=== PATIENT | female | born 1955 | race African-American/Black ===

== ENCOUNTER 2021-11-19 09:50 | Emergency (ER) | payer MEDICARE, MEDICAID ==
[~2021-11-19] VITALS: Ht 167.6 cm; Wt 80.0 kg
[2021-11-19] MEDS ORDERED: CYCLOBENZAPRINE 10MG TABLET PO ONE (10:30)
[2021-11-19] MEDS ORDERED: KETOROLAC 60MG/2ML VIAL IM ONE (10:30)
[2021-11-19] MEDS ORDERED: LIDOCAINE 5% PATCH TOP SCH (10:30)
[2021-11-19] MEDS ORDERED: HYDROCODONE/ACETAMINOPHEN 10/325MG TABLET PO ONE (13:15)
[2021-11-19] MEDS ORDERED: DIAZEPAM 5 MG TABLET PO STA (13:52)
[2021-11-19] MEDS ORDERED: HYDR-4009 MT ×3 (14:41→15:58)
[2021-11-19 15:30] VITALS: BP 154/76
== END 2021-11-19 15:40 | disposition home or self-care (01) ==
LOC: ER 09:50
DX: M54.50 Low back pain, unspecified (principal); M54.30 Sciatica, unspecified side; I10 Essential (primary) hypertension; F12.10 Cannabis abuse, uncomplicated; Z88.0 Allergy status to penicillin
CPT/HCPCS: 96372; 99284; J1885